=== PATIENT | male | born 1985 | race African-American/Black ===

== ENCOUNTER 2019-12-31 20:03 | Emergency (ER) | payer MEDICAID, OTHER ==
[~2019-12-31] VITALS: Ht 190.5 cm; Wt 129.3 kg
[2019-12-31] MEDS ORDERED: IV NS 0.9% 1,000 ML IV ONE (20:13)
--- NOTE | 2019-12-31 20:15 | NUR ---
PT AAOX4. AMBULAORY WITH STEADY GAIT. PT BIBSELF C/O HEADACHE AND BODY ACHES X1 DAY. PT STATED YESTERDAY HE VOMITED AND HAD A FEVER. TODAY, HAD A FEVER OF 101. UPON CHECKING PT HAS FEVER OF 102.9. DENIES ABDOMINAL PAIN, RR EVEN AND UNLABORED, NO ACUTE DISTRESS NOTED. AWAITING MD FOR EVAL AND ORDERS. WILL COTNINUE TO MONITOR. SURGICAL MASK PALCED ON PT, PLACED IN BED 7. WILL CONTINUE TO MONITOR.
--- NOTE | 2019-12-31 20:21 | NUR ---
CALLED LAB FOR COVID SWAB
[2019-12-31] MEDS ORDERED: KETOROLAC TROMETHAMINE 15 MG/ML VIAL ONE (20:22)
[2019-12-31] MEDS ORDERED: ACETAMINOPHEN ES 500 MG TABLET ONE (20:22)
[2019-12-31] MEDS ORDERED: KETOROLAC TROMETHAMINE INJ 30 MG/ML VIAL IV ONE (20:30)
[2019-12-31] MEDS ORDERED: ACETAMINOPHEN ES 500 MG TABLET PO ONE (20:30)
--- NOTE | 2019-12-31 20:31 | NUR ---
LUNG PULLER AT BEDSIDE FOR LABS
[2019-12-31 20:35] LABS: BASOPHILS % (AUTO) 0.7 % (0.0-2.0); HEMATOCRIT 40 % (39-51); HEMOGLOBIN 13.8 g/dL (13.5-17.5); LYMPHOCYTES # (AUTO) 0.8 /CMM (0.8-4.8); LYMPHOCYTES % (AUTO) 15.2 % (20.0-44.0); MEAN CORPUSCULAR HGB CONC 34 g/dl (31.0-36.0); MEAN CORPUSCULAR VOLUME 90 fL (80-96); MONOCYTES # (AUTO) 0.9 /CMM (0.1-1.30); MONOCYTES % (AUTO) 17.1 % (2.0-12.0); NEUTROPHILS # (AUTO) 3.7 /CMM (1.8-8.9); PLATELET COUNT (AUTO) 224 /CMM (150-450); RED BLOOD CELL COUNT(AUTO) 4.47 MIL/uL (4.5-6.0); WHITE BLOOD COUNT (AUTO) 5.5 K/uL (4.3-11.0)
--- NOTE | 2019-12-31 20:38 | NUR ---
COVID TEST SENT TO LAB
[2019-12-31 20:43] LABS: CALCIUM, SERUM 9.1 mg/dL (8.5-10.1); CREATININE 1.3 mg/dL (0.6-1.3); POTASSIUM 3.2 mmol/L (3.5-5.1)
[2019-12-31 20:49] LABS: BILIRUBIN,TOTAL 0.7 mg/dL (0.2-1.0); TOTAL PROTEIN, SERUM 7.4 g/dL (6.4-8.2)
--- NOTE | 2019-12-31 21:36 | NUR ---
Patient discharged to home in stable condition. Written and verbal after care instructions given. Patient verbalizes understanding of instruction.IV removed. Catheter intact and site benign. Pressure and 4x4 applied to site. No bleeding noted. Pt ambulatory with a steady gait
[2019-12-31 21:38] VITALS: BP 154/85
[2019-12-31 21:51] LABS: BAND % (MANUAL) 3 % (0.0-5.0); LYMPHOCYTES % (MANUAL) 12 % (16-48); MONOCYTES % (MANUAL) 11 % (0-11.0); NEUTROPHILS % (MANUAL) 73 (42-76); REACTIVE LYMPHOCYTES 1 % (0-0)
--- NOTE | 2020-01-04 10:10 | NUR ---
CALLED AND INFORMED OF RESULT,FEEL OKAY ACCORDING TO HIM,ADVISED TO CALL HIS PMD
== END 2019-12-31 21:39 | disposition home or self-care (01) ==
LOC: ER 20:07
DX: U07.1 COVID-19 (principal)
CPT/HCPCS: 36415; 71045; 80053; 85025; 85730; 96361; 96374; 99284; C9803; J1885; J7030; U0003

== ENCOUNTER 2020-01-22 22:50 | Emergency (ER) | payer OTHER ==
[~2020-01-22] VITALS: Ht 190.5 cm; Wt 129.3 kg
--- NOTE | 2020-01-22 23:10 | NUR ---
BIBS FOR C/O L SIDED NON- RADIATING CP X 4 DAYS. PT RATING THE PAIN4-6/10. NO SOB. NNO H/A. NO DIZZINESS. PT REPORTED HE WAS TESTED + FOR COVID. WAS PLACED ON A MONITOR. VSS.
--- NOTE | 2020-01-22 23:17 | NUR ---
EKG AT BED SIDE
--- NOTE | 2020-01-22 23:19 | NUR ---
lac 178g iv line started. blood drawn and sent to lab
[2020-01-22 23:22] LABS: BASOPHILS # (AUTO) 0.1 /CMM (0.0-0.2); BASOPHILS % (AUTO) 0.8 % (0.0-2.0); HEMATOCRIT 36 % (39-51); HEMOGLOBIN 12.1 g/dL (13.5-17.5); LYMPHOCYTES # (AUTO) 3.3 /CMM (0.8-4.8); MEAN CORPUSCULAR HGB CONC 34 g/dl (31.0-36.0); MEAN CORPUSCULAR VOLUME 91 fL (80-96); MONOCYTES # (AUTO) 0.5 /CMM (0.1-1.30); MONOCYTES % (AUTO) 5.8 % (2.0-12.0); NEUTROPHILS # (AUTO) 4.6 /CMM (1.8-8.9); NEUTROPHILS % (AUTO) 53.4 % (43.0-81.0); PLATELET COUNT (AUTO) 297 /CMM (150-450); RED BLOOD CELL COUNT(AUTO) 3.92 MIL/uL (4.5-6.0); WHITE BLOOD COUNT (AUTO) 8.6 K/uL (4.3-11.0)
[2020-01-22 23:30] LABS: CARBON DIOXIDE 24 mmol/L (21-32); CHLORIDE 107 mmol/L (98-107); CREATININE 1.1 mg/dL (0.6-1.3); GLUCOSE 92 mg/dL (74-106); POTASSIUM 3.9 mmol/L (3.5-5.1); SODIUM SERUM 140 mmol/L (136-145); UREA NITROGEN, BLOOD 13 mg/dL (7-18)
--- NOTE | 2020-01-23 00:30 | NUR ---
IV removed. Catheter intact and site benign. Pressure and 4x4 applied to site. No bleeding noted.
--- NOTE | 2020-01-23 00:39 | NUR ---
PT is medically stable for d/c. Patient discharged to home in stable condition. Rx and Written and verbal after care instructions given. Patient verbalizes understanding of instruction.
[2020-01-23 00:40] VITALS: BP 124/77
== END 2020-01-23 00:40 | disposition home or self-care (01) ==
LOC: ER 22:51
DX: R09.1 Pleurisy (principal)
CPT/HCPCS: 36415; 71045-TC; 80048-TC; 84484-TC; 85025-TC; 85730-TC

== ENCOUNTER 2020-02-03 00:19 | Emergency (ER) | payer OTHER ==
[~2020-02-03] VITALS: Ht 190.5 cm; Wt 129.3 kg
[2020-02-03 00:20] VITALS: BP 141/83
--- NOTE | 2020-02-03 00:45 | NUR ---
Patient received prescriptions Albuterolinhaler and IBUPROFEN.
--- NOTE | 2020-02-03 00:45 | NUR ---
Patient discharged to home in stable condition. Written and verbal after care instructions given. Patient verbalizes understanding of instruction.
== END 2020-02-03 00:47 | disposition home or self-care (01) ==
LOC: ER 00:22
DX: R09.1 Pleurisy (principal)

== ENCOUNTER 2020-04-18 14:18 | Emergency (ER) | payer OTHER ==
[~2020-04-18] VITALS: Ht 188 cm; Wt 129.3 kg
[2020-04-18 14:26] VITALS: BP 132/71
--- NOTE | 2020-04-18 14:28 | NUR ---
marla stated that sexual partner is positive for chlamydia and pt was sent to ER for treatment. pt c/o dysuria x 1 week. no hematuria. no fever. no purulent discharge per PT. awaiting for md corcoran
[2020-04-18] MEDS ORDERED: CEFTRIAXONE 500 MG VIAL ONE (14:39)
[2020-04-18] MEDS ORDERED: AZITHROMYCIN 250 MG TABLET ONE (14:40)
[2020-04-18] MEDS ORDERED: LIDOCAINE /MPF 1% VIAL 5 ML VIAL ONE (14:45)
[2020-04-18] MEDS ORDERED: CEFTRIAXONE 500 MG VIAL IM ONE (15:00)
[2020-04-18] MEDS ORDERED: AZITHROMYCIN 250 MG TABLET PO ONE (15:00)
--- NOTE | 2020-04-18 15:17 | NUR ---
dc orders received, dc instructions tought and provided copy, pt has good understanding of dc instructions no distress noted vs stable pt aox4 dc to waiting room no adverse reaction noted from given meds.
== END 2020-04-18 15:21 | disposition home or self-care (01) ==
LOC: ER 14:26
DX: Z20.2 Contact with and (suspected) exposure to infections with a predominantly sexual mode of transmission (principal)
CPT/HCPCS: 96372; 99283; J0696; J3490

== ENCOUNTER 2020-08-17 02:11 | Emergency (ER) | payer OTHER ==
[~2020-08-17] VITALS: Ht 190.5 cm; Wt 130.2 kg
--- NOTE | 2020-08-17 02:35 | NUR ---
at bed side
[2020-08-17] MEDS ORDERED: FLUORESCEIN SODIUM OPHTH 1 EA STRIP ONE (02:39)
[2020-08-17] MEDS ORDERED: MOXI3DRO LEFTEYE (02:49)
--- NOTE | 2020-08-17 02:56 | NUR ---
Patient discharged to home in stable condition. Rx and Written and verbal after care instructions given. Patient verbalizes understanding of instruction.
[2020-08-17 02:57] VITALS: BP 135/81
== END 2020-08-17 02:57 | disposition home or self-care (01) ==
LOC: ER 02:13
DX: S05.02XA Injury of conjunctiva and corneal abrasion without foreign body, left eye, initial encounter (principal); X58.XXXA Exposure to other specified factors, initial encounter; Y93.89 Activity, other specified; Y92.89 Other specified places as the place of occurrence of the external cause; Y99.8 Other external cause status

== ENCOUNTER 2020-11-21 21:42 | Emergency (ER) | payer OTHER ==
[~2020-11-21 21:42] MED LIST: MOXI3DRO LEFTEYE
--- NOTE | 2020-11-21 21:47 | NUR ---
called for triage, no answer.
--- NOTE | 2020-11-21 21:50 | NUR ---
called for triage, no answer.
--- NOTE | 2020-11-21 21:55 | NUR ---
called for triage, no answer.
== END 2020-11-21 22:18 | disposition home or self-care (01) ==
LOC: ER 21:48
DX: Z53.21 Procedure and treatment not carried out due to patient leaving prior to being seen by health care provider (principal)

== ENCOUNTER 2020-11-22 04:25 | Emergency (ER) | payer OTHER ==
[~2020-11-22] VITALS: Ht 188 cm; Wt 129.3 kg
[2020-11-22 04:25] VITALS: BP 141/79
[2020-11-22 05:17] LABS: BILIRUBIN,URINE Negative (NEGATIVE); COLOR,URINE YELLOW (YELLOW); LEUKOCYTE ESTERASE ,URINE Negative (NEGATIVE); NITRITE, URINE Negative (NEGATIVE); PH,URINE 5.5 (5.0-8.0); PROTEIN,URINE 30 mg/dl (NEGATIVE); UGLUCOSE Negative (NEGATIVE); UROBILINOGEN,URINE 0.2 EU/dL (0.2)
[2020-11-22] MEDS ORDERED: METRONIDAZOLE 500 MG TABLET ONE (05:35)
[2020-11-22] MEDS ORDERED: LIDOCAINE /MPF 1% VIAL 5 ML VIAL ONE (05:35)
[2020-11-22] MEDS ORDERED: CEFTRIAXONE 500 MG VIAL ONE (05:35)
[2020-11-22] MEDS ORDERED: AZITHROMYCIN 250 MG TABLET ONE (05:35)
[2020-11-22] MEDS: METRONIDAZOLE 500 MG TABLET PO ONE (05:50)
[2020-11-22] MEDS: AZITHROMYCIN 250 MG TABLET PO ONE (05:50)
[2020-11-22] MEDS: CEFTRIAXONE 500 MG VIAL IM ONE (05:50)
== END 2020-11-22 05:50 | disposition home or self-care (01) ==
LOC: ER 04:27
DX: Z20.2 Contact with and (suspected) exposure to infections with a predominantly sexual mode of transmission (principal)
CPT/HCPCS: 81003; 87491; 87591; 96372; 99283; J0696; J3490

== ENCOUNTER 2021-01-20 16:34 | Emergency (ER) | payer OTHER ==
[~2021-01-20] VITALS: Ht 190.5 cm; Wt 131.5 kg
[2021-01-20] MEDS ORDERED: ACYC5CRE2 TP (17:09)
[2021-01-20 17:13] VITALS: BP 125/70
== END 2021-01-20 17:13 | disposition home or self-care (01) ==
LOC: ER 16:36
DX: B00.1 Herpesviral vesicular dermatitis (principal); Z90.89 Acquired absence of other organs; Z79.899 Other long term (current) drug therapy

== ENCOUNTER 2021-03-31 14:07 | Emergency (ER) | payer OTHER ==
[~2021-03-31] VITALS: Ht 190.5 cm; Wt 131.5 kg
[~2021-03-31 14:07] MED LIST changes: +ACYC5CRE2 TP
[2021-03-31 14:33] VITALS: BP 132/81
--- NOTE | 2021-03-31 14:40 | NUR ---
TO ER CHAIR 2, C/O SHARP PAIN DURING URINATION, CLOUDY DISCHARGE,X1WK, NO LESIONS. AAOX4, BREATHING EVEN AND NON LABORED
--- NOTE | 2021-03-31 14:42 | NUR ---
URINE COLLECTED AND SENT TO LAB
[2021-03-31] MEDS ORDERED: DOXYCYCLINE HYCLATE (100 MG) 100 MG TABLET ONE (14:51)
[2021-03-31] MEDS ORDERED: CEFTRIAXONE 500 MG VIAL ONE (14:51)
[2021-03-31] MEDS ORDERED: LIDOCAINE 1% INJ 50 ML MDV IJ ONE (14:52)
[2021-03-31 14:56] LABS: BILIRUBIN,URINE NEGATIVE (NEGATIVE); COLOR,URINE YELLOW (YELLOW); LEUKOCYTE ESTERASE ,URINE SMALL (NEGATIVE); NITRITE, URINE NEGATIVE (NEGATIVE); PH,URINE 7.5 (5.0-8.0); PROTEIN,URINE NEGATIVE (NEGATIVE); UGLUCOSE NEGATIVE (NEGATIVE); UROBILINOGEN,URINE 0.2 EU/dL (0.2)
[2021-03-31] MEDS ORDERED: CEFTRIAXONE 500 MG VIAL IM ONE (15:00)
[2021-03-31] MEDS ORDERED: DOXYCYCLINE HYCLATE (100 MG) 100 MG TABLET PO ONE (15:00)
[2021-03-31 15:05] LABS: BACTERIA,URINE Few /HPF (None Seen); RBC,URINE 0-2 /HPF (0-2); SQUAMOUS EPITHELIAL CELL,UR Few /HPF (None Seen); URINE AMORPHOUS PHOSPHATES Few /HPF (None Seen); WBC,URINE 21-50 /HPF (0-3)
[2021-03-31] MEDS ORDERED: DOXY100C2 PO (15:05)
--- NOTE | 2021-03-31 15:09 | NUR ---
MEDICATED ORDERED,NO ADVERSE REACTION NOTED
--- NOTE | 2021-03-31 15:14 | NUR ---
Patient discharged to home in stable condition. Written and verbal after care instructions given. Patient verbalizes understanding of instruction.
== END 2021-03-31 15:16 | disposition home or self-care (01) ==
LOC: ER 14:13
DX: N34.2 Other urethritis (principal); Z79.899 Other long term (current) drug therapy
CPT/HCPCS: 81001; 87086; 87491; 87591; 96372; 99283; J0696; J3490

== ENCOUNTER → 2021-07-27 | Emergency (ER) | payer OTHER ==
[~2021-07-27] VITALS: Ht 190.5 cm; Wt 130.2 kg
[~2021-07-27] MED LIST changes: +DOXY100C2 PO
[2021-07-27 11:15] VITALS: BP 148/83
--- NOTE | 2021-07-27 11:27 | NUR ---
Patient discharged to home in stable condition. Written and verbal after care instructions given. Patient verbalizes understanding of instruction.
--- NOTE | 2021-07-27 11:28 | NUR ---
UNABLE TO DEPART THE PATIENT FROM [facility]
== END | disposition home or self-care (01) ==
LOC: ER 11:34
DX: N52.9 Male erectile dysfunction, unspecified (principal)

== ENCOUNTER 2021-08-21 22:28 | Emergency (ER) | payer OTHER ==
[~2021-08-21] VITALS: Ht 190.5 cm; Wt 131.5 kg
--- NOTE | 2021-08-21 22:48 | NUR ---
BIBS. TO ER BED 11. AAOX4. NOT IN RESP DISTRESS. BRETHING EVEN AND UNLABORED. AMBULATORY. CAME IN FOR L & R CHEST PAIN X 4 DAYS. NON RADIATING 04/05 SHARP. PT ALSO COMPLAINING OF FREQUENT URINATION. AWAITNG MD FOR EVAL. PT ON MONITOR.
[2021-08-21] MEDS ORDERED: IBUPROFEN 400 MG TABLET ONE (22:51)
--- NOTE | 2021-08-21 22:55 | NUR ---
URINE COLLECTED AND SENT TO LAB
[2021-08-21] MEDS ORDERED: IBUPROFEN 400 MG TABLET PO ONE (23:00)
--- NOTE | 2021-08-21 23:00 | NUR ---
HOME STAGER AT PT'S BEDSIDE
--- NOTE | 2021-08-21 23:37 | NUR ---
PEDIATRIC PSYCHIATRIST AT PT'S BEDSIDE
--- NOTE | 2021-08-21 23:56 | NUR ---
S/P ADMIN MOTRIN 800MG @ 2254; PT DENIES PAIN OR DISCOMFORT AT THIS TIME
[2021-08-21 23:58] LABS: BILIRUBIN,URINE NEGATIVE (NEGATIVE); COLOR,URINE YELLOW (YELLOW); LEUKOCYTE ESTERASE ,URINE NEGATIVE (NEGATIVE); NITRITE, URINE NEGATIVE (NEGATIVE); PH,URINE 6.5 (5.0-8.0); PROTEIN,URINE NEGATIVE (NEGATIVE); UGLUCOSE NEGATIVE (NEGATIVE); UROBILINOGEN,URINE 0.2 EU/dL (0.2)
[2021-08-22 00:09] LABS: D-DIMER 0.19 mg/L(FEU (0.17-0.50)
[2021-08-22 00:13] LABS: ALANINE AMINOTRANSFERASE 42 U/L (12-78); ALBUMIN 3.7 g/dL (3.4-5.0); ALKALINE PHOSPHATASE 49 U/L (46-116); ASPARTATE AMINOTRANSFERASE 32 U/L (15-37); BILIRUBIN,DIRECT 0.1 mg/dL (0.0-0.2); BILIRUBIN,TOTAL 0.6 mg/dL (0.2-1.0); CALCIUM, SERUM 8.5 mg/dL (8.5-10.1); CARBON DIOXIDE 28 mmol/L (21-32); CHLORIDE 104 mmol/L (98-107); CREATININE 1.1 mg/dL (0.6-1.3); GLUCOSE 91 mg/dL (74-106); POTASSIUM 3.7 mmol/L (3.5-5.1); SODIUM SERUM 137 mmol/L (136-145); TOTAL PROTEIN, SERUM 7.2 g/dL (6.4-8.2); UREA NITROGEN, BLOOD 18 mg/dL (7-18)
[2021-08-22 00:17] LABS: BACTERIA,URINE Few /HPF (None Seen); RBC,URINE 0-2 /HPF (0-2); SQUAMOUS EPITHELIAL CELL,UR Few /HPF (None Seen)
[2021-08-22 00:27] LABS: BASOPHILS # (AUTO) 0.1 K/uL (0.0-0.2); BASOPHILS % (AUTO) 0.6 % (0.0-2.0); EOSINOPHILS % (AUTO) 1.8 % (0.0-6.0); HEMATOCRIT 39 % (39-51); LYMPHOCYTES # (AUTO) 3.6 K/uL (0.8-4.8); LYMPHOCYTES % (AUTO) 41.2 % (20.0-44.0); MEAN CORPUSCULAR HGB CONC 34 g/dl (31.0-36.0); MEAN CORPUSCULAR VOLUME 90 fL (80-96); MONOCYTES # (AUTO) 0.5 K/uL (0.1-1.30); MONOCYTES % (AUTO) 5.6 % (2.0-12.0); NEUTROPHILS # (AUTO) 4.4 K/uL (1.8-8.9); NEUTROPHILS % (AUTO) 50.8 % (43.0-81.0); PLATELET COUNT (AUTO) 281 K/uL (150-450); RED BLOOD CELL COUNT(AUTO) 4.28 MIL/uL (4.5-6.0); WHITE BLOOD COUNT (AUTO) 8.7 K/uL (4.3-11.0)
[2021-08-22 00:52] VITALS: BP 127/70
--- NOTE | 2021-08-22 00:52 | NUR ---
Patient discharged to home in stable condition. Written and verbal after care instructions given. Patient verbalizes understanding of instruction. PT ambulatory with a steady gait
== END 2021-08-22 00:55 | disposition home or self-care (01) ==
LOC: ER 22:28
DX: R07.89 Other chest pain (principal); Z79.810 Long term (current) use of selective estrogen receptor modulators (SERMs); Z79.899 Other long term (current) drug therapy; Z60.2 Problems related to living alone
CPT/HCPCS: 36415; 71045-TC; 80048-TC; 80076-TC; 81001; 84484-TC; 85025-TC; 85378-TC; 85730-TC; 87086-TC

== ENCOUNTER 2022-09-29 22:25 | Emergency (ER) | payer OTHER ==
[~2022-09-29] VITALS: Ht 193 cm; Wt 131.5 kg
--- NOTE | 2022-09-29 23:10 | NUR ---
Pt in bed, a/o x 4, able to verbalize needs, ambulatory. On RA, tolerating well. No s/sx of acute respi distress noted at this time. Awaiting md orders.
[2022-09-30] MEDS ORDERED: predniSONE 20 MG TABLET PO ONE
[2022-09-30] MEDS ORDERED: ALBUTEROL FS 2.5 MG/3 ML VIAL.NEB NEB ONE
[2022-09-30] MEDS ORDERED: IPRATROPIUM NEB FS 0.5 MG/2.5 ML AMPUL.NEB NEB ONE
--- NOTE | 2022-09-30 00:10 | NUR ---
Urine sample obtained and sent to lab.
[2022-09-30] MEDS ORDERED: predniSONE 20 MG TABLET ONE (00:13)
--- NOTE | 2022-09-30 00:25 | NUR ---
CALLED RT FOR BREATHING TX
[2022-09-30] MEDS ORDERED: IPRATROPIUM NEB FS 0.5 MG/2.5 ML AMPUL.NEB ONE (00:31)
[2022-09-30] MEDS ORDERED: ALBUTEROL FS 2.5 MG/3 ML VIAL.NEB ONE (00:31)
[2022-09-30 00:41] LABS: BILIRUBIN,URINE NEGATIVE (NEGATIVE); COLOR,URINE YELLOW (YELLOW); LEUKOCYTE ESTERASE ,URINE NEGATIVE (NEGATIVE); NITRITE, URINE NEGATIVE (NEGATIVE); PH,URINE 6.5 (5.0-8.0); PROTEIN,URINE NEGATIVE (NEGATIVE); UGLUCOSE NEGATIVE (NEGATIVE); UROBILINOGEN,URINE 0.2 EU/dL (0.2)
[2022-09-30] MEDS ORDERED: CEFTRIAXONE 500 MG VIAL IM ONE (01:00)
[2022-09-30] MEDS ORDERED: DOXYCYCLINE HYCLATE (100 MG) 100 MG TABLET PO ONE (01:00)
[2022-09-30] MEDS ORDERED: CEFTRIAXONE 500 MG VIAL ONE (01:39)
[2022-09-30] MEDS ORDERED: ALBU18HF2 INH ×2 (01:56→02:08)
[2022-09-30] MEDS ORDERED: DOXY-326 PO ×2 (01:56→02:08)
[2022-09-30] MEDS ORDERED: PRED50TA PO ×2 (01:56→02:08)
[2022-09-30 02:13] VITALS: BP 130/78
== END 2022-09-30 02:13 | disposition home or self-care (01) ==
LOC: ER 22:26
DX: J06.9 Acute upper respiratory infection, unspecified (principal); J45.909 Unspecified asthma, uncomplicated; Z79.899 Other long term (current) drug therapy; Z60.2 Problems related to living alone
CPT/HCPCS: 99284; 71045; 81003; 36415; 86592; 86593; 96372; 94640; 87806; 87491; 87591; J7512; J0696

== ENCOUNTER 2022-12-05 03:39 | Emergency (ER) | payer OTHER ==
[~2022-12-05] VITALS: Ht 193 cm; Wt 129.3 kg
[~2022-12-05 03:39] MED LIST changes: +ALBU18HF2 INH; +DOXY-326 PO; +PRED50TA PO
--- NOTE | 2022-12-05 04:12 | NUR ---
URINE SPECIMEN SENT TO LAB
--- NOTE | 2022-12-05 04:40 | NUR ---
DISCHARGES AND BURNING SENSATION DURING URINATION X2 DAYS, +UNPROTECTED SEX. PLACED COMFORTABLY IN BED. VITALS CHECKED.
--- NOTE | 2022-12-05 04:45 | NUR ---
SEEN BY DR CHU AT BEDSIDE
[2022-12-05] MEDS ORDERED: DOXY100C2 PO (04:46)
--- NOTE | 2022-12-05 04:47 | NUR ---
PT WANTS TO GO HOME AFTER IM INJECTION. HE SAID HE DOESNT WANT TO WAIT.
[2022-12-05] MEDS ORDERED: CEFTRIAXONE 500 MG VIAL ONE (04:51)
[2022-12-05] MEDS ORDERED: LIDOCAINE /MPF 1% VIAL 5 ML VIAL ONE (04:51)
[2022-12-05] MEDS ORDERED: DOXYCYCLINE HYCLATE (100 MG) 100 MG TABLET ONE (04:52)
--- NOTE | 2022-12-05 04:59 | NUR ---
Patient discharged to home in stable condition. Written and verbal after care instructions given. Patient verbalizes understanding of instruction.
[2022-12-05] MEDS ORDERED: DOXYCYCLINE HYCLATE (100 MG) 100 MG TABLET PO ONE (05:00)
[2022-12-05] MEDS ORDERED: CEFTRIAXONE 500 MG VIAL IM ONE (05:00)
[2022-12-05 05:05] VITALS: BP 126/74
[2022-12-05 05:24] LABS: BILIRUBIN,URINE 1+ (NEGATIVE); COLOR,URINE YELLOW (YELLOW); LEUKOCYTE ESTERASE ,URINE 1+ (NEGATIVE); NITRITE, URINE NEGATIVE (NEGATIVE); PH,URINE 5.5 (5.0-8.0); PROTEIN,URINE NEGATIVE (NEGATIVE); UGLUCOSE NEGATIVE (NEGATIVE)
[2022-12-05 05:31] LABS: BACTERIA,URINE Rare /HPF (None Seen); SQUAMOUS EPITHELIAL CELL,UR Few /HPF (None Seen); WBC,URINE 0-2 /HPF (0-3); YEAST,URINE Few /HPF (None Seen)
== END 2022-12-05 05:05 | disposition home or self-care (01) ==
LOC: ER 03:40
DX: N34.2 Other urethritis (principal); Z60.2 Problems related to living alone; Z79.899 Other long term (current) drug therapy
CPT/HCPCS: 99283; 96372; 87086 ×2; 81001; 87491; 87591; J0696; J3490

== ENCOUNTER 2023-04-12 09:05 | Emergency (ER) | payer OTHER ==
[~2023-04-12] VITALS: Ht 190.5 cm; Wt 137.9 kg
[2023-04-12 09:16] VITALS: BP 148/86; TEMP 98.9; O2SAT 98
[2023-04-12 10:11] LABS: APPEARANCE,URINE CLEAR (CLEAR); BILIRUBIN,URINE NEGATIVE (NEGATIVE); BLOOD, URINE NEGATIVE Ery/uL (NEGATIVE); COLOR,URINE YELLOW (YELLOW); KETONES,URINE NEGATIVE (NEGATIVE); LEUKOCYTE ESTERASE ,URINE NEGATIVE (NEGATIVE); NITRITE, URINE NEGATIVE (NEGATIVE); PH,URINE 6.5 (5.0-8.0); PROTEIN,URINE NEGATIVE (NEGATIVE); UGLUCOSE NEGATIVE (NEGATIVE); UROBILINOGEN,URINE 0.2 EU/dL (0.2)
[2023-04-12] MEDS ORDERED: DOXY100C2 PO (11:07)
[2023-04-12] MEDS ORDERED: CEFTRIAXONE 500 MG VIAL ONE (11:14)
[2023-04-12] MEDS ORDERED: LIDOCAINE /MPF 1% VIAL 5 ML VIAL ONE (11:14)
[2023-04-12] MEDS ORDERED: DOXYCYCLINE HYCLATE (100 MG) 100 MG TABLET ONE (11:15)
[2023-04-12] MEDS: CEFTRIAXONE 500 MG VIAL IM ONE (11:23)
[2023-04-12] MEDS: DOXYCYCLINE HYCLATE (100 MG) 100 MG TABLET PO ONE (11:23)
[2023-04-16 04:06] LABS: CHLAMYDIA TRACHOMATIS NAA Negative (Negative); NEISSERIA GONORRHOEAE NAA Negative (Negative)
== END 2023-04-12 11:25 | disposition home or self-care (01) ==
LOC: ER 09:13
DX: N34.2 Other urethritis (principal); R30.0 Dysuria; Z60.2 Problems related to living alone
CPT/HCPCS: 99283; 96372; 81003; 87491; 87591; J0696; J3490

== ENCOUNTER 2025-01-10 09:54 | Emergency (ER) | payer OTHER ==
[~2025-01-10] VITALS: Ht 193 cm; Wt 129.3 kg
[2025-01-10 10:22] VITALS: TEMP 98.5
[2025-01-10] MEDS ORDERED: LIDOCAINE 5% (PATCH) 1 EA PATCH TP ONE (11:03)
[2025-01-10] MEDS ORDERED: ACETAMINOPHEN ES 500 MG TABLET ONE (11:04)
[2025-01-10] MEDS ORDERED: CYCLOBENZAPRINE 10 MG TABLET ONE (11:04)
[2025-01-10] MEDS ORDERED: KETOROLAC TROMETHAMINE INJ 30 MG/ML VIAL ONE (11:04)
[2025-01-10] MEDS: KETOROLAC TROMETHAMINE INJ 30 MG/ML VIAL IM ONE (11:10)
[2025-01-10] MEDS: ACETAMINOPHEN ES 500 MG TABLET PO ONE (11:19)
[2025-01-10] MEDS: CYCLOBENZAPRINE 10 MG TABLET PO ONE (11:19)
[2025-01-10] MEDS: LIDOCAINE 5% (PATCH) 1 EA PATCH TP SCH (11:19)
[2025-01-10] MEDS ORDERED: HYDROCODONE/APAP 10/325MG TABLET ONE (12:01)
[2025-01-10] MEDS: HYDROCODONE/APAP 10/325MG TABLET PO ONE (12:07)
[2025-01-10] MEDS ORDERED: ACET-2605 PO (13:03)
[2025-01-10] MEDS ORDERED: HYDR-4303 PO (13:03)
[2025-01-10] MEDS ORDERED: CYCL10TA9 PO (13:03)
[2025-01-10] MEDS ORDERED: NAPR-1009 PO (13:03)
[2025-01-10 13:17] VITALS: BP 125/77; O2SAT 99
== END 2025-01-10 13:18 | disposition home or self-care (01) ==
LOC: ER 10:06
DX: M54.50 Low back pain, unspecified (principal); M62.838 Other muscle spasm; Z79.52 Long term (current) use of systemic steroids; Z79.899 Other long term (current) drug therapy; Z98.890 Other specified postprocedural states
CPT/HCPCS: 99284; 96372; J1885

== ENCOUNTER 2025-05-08 19:07 | Emergency (ER) | payer OTHER ==
[~2025-05-08] VITALS: Ht 193 cm; Wt 133.8 kg
[~2025-05-08 19:07] MED LIST changes: +ACET-2605 PO; +CYCL10TA9 PO; +HYDR-4303 PO; +NAPR-1009 PO
[2025-05-08 20:10] LABS: PLATELET COUNT (AUTO) 267 K/uL (150-450); RED BLOOD CELL COUNT(AUTO) 4.36 MIL/uL (4.5-6.0); RED CELL DISTRIBUTION WIDTH 13.0 % (11.5-15.0); WHITE BLOOD COUNT (AUTO) 7.4 K/uL (4.3-11.0)
[2025-05-08 20:15] LABS: CALCIUM, SERUM 8.8 mg/dL (8.5-10.1); CREATININE 1.0 mg/dL (0.6-1.3); SODIUM SERUM 138.0 mmol/L (136-145); UREA NITROGEN, BLOOD 13.0 mg/dL (7-18)
[2025-05-08 20:22] LABS: APPEARANCE,URINE CLEAR (CLEAR); BLOOD, URINE NEGATIVE Ery/uL (NEGATIVE); LEUKOCYTE ESTERASE ,URINE NEGATIVE (NEGATIVE); NITRITE, URINE NEGATIVE (NEGATIVE); UGLUCOSE NEGATIVE (NEGATIVE)
[2025-05-08 20:22] LABS: ASPARTATE AMINOTRANSFERASE 40.0 U/L (15-37); TOTAL PROTEIN, SERUM 7.4 g/dL (6.4-8.2)
[2025-05-08 21:37] VITALS: BP 164/79; TEMP 98.4; O2SAT 99
== END 2025-05-09 03:32 | disposition home or self-care (01) ==
LOC: ER 19:09
DX: R55 Syncope and collapse (principal); Z79.52 Long term (current) use of systemic steroids
CPT/HCPCS: 36415; 71045-TC; 80053-TC; 85025-TC

== ENCOUNTER 2025-05-11 21:17 | Emergency (ER) | payer OTHER ==
[~2025-05-11] VITALS: Ht 193 cm; Wt 133.8 kg
[2025-05-11] MEDS ORDERED: IBUPROFEN 400 MG TABLET ONE (22:52)
[2025-05-11] MEDS: IBUPROFEN 400 MG TABLET PO ONE (22:55)
[2025-05-11 23:24] VITALS: TEMP 98.3
[2025-05-12] MEDS ORDERED: ALBU18HF2 INH (00:17)
[2025-05-12 00:52] VITALS: BP 139/72; O2SAT 99
== END 2025-05-12 00:53 | disposition home or self-care (01) ==
LOC: ER 21:20
DX: R05.9 Cough, unspecified (principal); R06.02 Shortness of breath; R68.83 Chills (without fever); R23.2 Flushing; Z20.822 Contact with and (suspected) exposure to COVID-19; Z91.048 Other nonmedicinal substance allergy status
CPT/HCPCS: 71045-TC

== ENCOUNTER 2025-05-14 17:31 | Emergency (ER) | payer OTHER ==
[~2025-05-14] VITALS: Ht 193 cm; Wt 133.8 kg
[2025-05-14 17:42] VITALS: TEMP 97.8
[2025-05-14 18:14] LABS: PLATELET COUNT (AUTO) 289 K/uL (150-450); RED BLOOD CELL COUNT(AUTO) 4.74 MIL/uL (4.5-6.0); RED CELL DISTRIBUTION WIDTH 12.7 % (11.5-15.0); WHITE BLOOD COUNT (AUTO) 8.5 K/uL (4.3-11.0)
[2025-05-14] MEDS ORDERED: IBUPROFEN 600 MG TABLET ONE (18:19)
[2025-05-14] MEDS ORDERED: ACETAMINOPHEN ES 500 MG TABLET ONE (18:19)
[2025-05-14 18:22] LABS: CALCIUM, SERUM 9.0 mg/dL (8.5-10.1); CREATININE 1.0 mg/dL (0.6-1.3); SODIUM SERUM 137 mmol/L (136-145); UREA NITROGEN, BLOOD 9 mg/dL (7-18)
[2025-05-14] MEDS: IV NS 0.9% 1,000 ML BAG IV ONE (18:30)
[2025-05-14] MEDS: IBUPROFEN 600 MG TABLET PO ONE (18:30)
[2025-05-14] MEDS: ACETAMINOPHEN ES 500 MG TABLET PO ONE (18:30)
[2025-05-14] MEDS ORDERED: METH4TAB17 PO (20:00)
[2025-05-14] MEDS ORDERED: DEXT15LI PO (20:00)
[2025-05-14] MEDS ORDERED: dexaMETHasone SOD PHOSPHATE 4 MG/ML VIAL ONE (20:04)
[2025-05-14] MEDS ORDERED: IBUP-1490 PO (20:07)
[2025-05-14] MEDS ORDERED: ACET-2030 PO (20:07)
[2025-05-14] MEDS: dexaMETHasone SOD PHOSPHATE 4 MG/ML VIAL IM ONE (20:11)
[2025-05-14 20:46] VITALS: BP 135/78; O2SAT 100
== END 2025-05-14 20:46 | disposition home or self-care (01) ==
LOC: ER 17:36
DX: J06.9 Acute upper respiratory infection, unspecified (principal); R06.02 Shortness of breath; Z79.52 Long term (current) use of systemic steroids; Z91.048 Other nonmedicinal substance allergy status; Z20.822 Contact with and (suspected) exposure to COVID-19
CPT/HCPCS: 99285; 96360; 70450; 71045; 87426; 93005; 87804 ×2; 85025; 80048; 36415; 87420; 84484; 83880; 96372; J1100; J7030